=== PATIENT | male | born 1995 | race Caucasian/White ===

== ENCOUNTER 2019-10-03 18:36 | Emergency (ER) | payer SELFPAY ==
[~2019-10-03] VITALS: Ht 180.3 cm; Wt 78.5 kg
--- NOTE | 2019-10-03 18:59 | NUR ---
ASSUMED CARE OF PT, PLACED ON VITAL SIGNS MONITORS. CALL LIGHT WITHIN REACH. ROOMATE AT BEDSIDE.
[2019-10-03 19:55] VITALS: BP 138/85
== END 2019-10-03 20:25 | disposition home or self-care (01) ==
LOC: ED 20:00
DX: R07.89 Other chest pain (principal); F41.1 Generalized anxiety disorder; R94.31 Abnormal electrocardiogram [ECG] [EKG]
CPT/HCPCS: 71045; 93005; 99283